=== PATIENT | female | born 1955 | race Caucasian/White ===

== ENCOUNTER 2020-05-23 16:50 | Emergency (ER) | payer BC ==
[~2020-05-23] VITALS: Ht 157.5 cm; Wt 64.4 kg
[2020-05-23 16:57] VITALS: BP 124/86
--- NOTE | 2020-05-23 16:57 | NUR ---
PT BIBA TO ER BED 6
--- NOTE | 2020-05-23 17:13 | NUR ---
BIBA C/O R UPPER ARM PAIN S/P FALL X TODAY. DENIES LOC. BRUISING AND ABRASION TO CHIN. PER EMS, 20G LAC. FENTANYL 50 MCG IV. BLOOD SUGAR 200. AOX4, APPEARS NAD 07/15 SEVERE PAIN HX- DM, ESSENTIAL TREMORS, DEPRESSION, HLD
--- NOTE | 2020-05-23 17:51 | NUR ---
xray at bedside
[2020-05-23 18:59] VITALS: BP 112/73
--- NOTE | 2020-05-23 18:59 | NUR ---
Patient discharged with v/s stable. Written and verbal after care instructions given and explained. Patient alert, oriented and verbalized understanding of instructions. Ambulatory with steady gait. All questions addressed prior to discharge. ID band removed. Patient advised to follow up with PMD. Rx of NORCO AND NAPROSYN given. Patient educated on indication of medication including possible reaction and side effects. Opportunity to ask questions provided and answered.
== END 2020-05-23 18:59 | disposition home or self-care (01) ==
LOC: MED 16:50
DX: S42.91XA Fracture of right shoulder girdle, part unspecified, initial encounter for closed fracture (principal); W18.39XA Other fall on same level, initial encounter; Y93.89 Activity, other specified; Y92.89 Other specified places as the place of occurrence of the external cause; Y99.8 Other external cause status; Z88.0 Allergy status to penicillin; E11.9 Type 2 diabetes mellitus without complications
CPT/HCPCS: 73030; 73070; 99284; Q0092